=== PATIENT | female | born 1965 | race African-American/Black ===

== ENCOUNTER 2023-06-09 00:53 | Emergency (ER) | payer MEDICAID ==
[~2023-06-09] VITALS: Ht 167.6 cm; Wt 62.0 kg
[2023-06-09 01:11] VITALS: O2SAT 96
[2023-06-09] MEDS: ACETAMINOPHEN 325MG TABLET PO ONE (02:30)
[2023-06-09] MEDS ORDERED: LIDOCAINE HCL/EPINEPHRINE 1%-EPI 1:100,000 50 ML VIAL INFIL ONE (02:45)
[2023-06-09] MEDS ORDERED: LIDOCAINE HCL/EPINEPHRINE 1%-EPI 1:100,000 20 ML VIAL INFIL NR (04:00)
[2023-06-09 04:06] VITALS: BP 132/81; PULSE 80; RESP 18; TEMP 98.3
== END 2023-06-09 04:08 | disposition home or self-care (01) ==
LOC: ER 00:53
DX: S01.01XA Laceration without foreign body of scalp, initial encounter (principal); I10 Essential (primary) hypertension; E11.9 Type 2 diabetes mellitus without complications; Z00.00 Encounter for general adult medical examination without abnormal findings; Z69.11 Encounter for mental health services for victim of spousal or partner abuse; Z86.73 Personal history of transient ischemic attack (TIA), and cerebral infarction without residual deficits; Y04.0XXA Assault by unarmed brawl or fight, initial encounter; Y93.89 Activity, other specified; Y92.89 Other specified places as the place of occurrence of the external cause; Y99.8 Other external cause status
CPT/HCPCS: 70450; 72125; 12011; 99284; Z7610 ×2; J3490

== ENCOUNTER 2023-06-16 13:15 | Emergency (ER) | payer MEDICAID ==
[~2023-06-16] VITALS: Ht 162.6 cm; Wt 57.0 kg
[2023-06-16 13:36] VITALS: BP 128/81; PULSE 74; RESP 16; TEMP 98.5; O2SAT 100
== END 2023-06-16 15:31 | disposition home or self-care (01) ==
LOC: ER 13:15
DX: S01.91XD Laceration without foreign body of unspecified part of head, subsequent encounter (principal); I10 Essential (primary) hypertension; E11.9 Type 2 diabetes mellitus without complications; Z48.02 Encounter for removal of sutures; Z86.73 Personal history of transient ischemic attack (TIA), and cerebral infarction without residual deficits; X58.XXXD Exposure to other specified factors, subsequent encounter
CPT/HCPCS: 99281